=== PATIENT | female | born 1965 | race Hispanic/Latino ===

== ENCOUNTER 2023-02-04 08:32 | Outpatient (CLI) | payer BC | END 2023-02-04 08:33 | disposition home or self-care (01) | LOC: CSHMRI 08:32 | PROVIDERS: ATTEND Family Medicine | DX: M79.622 Pain in left upper arm (principal); S46.812A Strain of other muscles, fascia and tendons at shoulder and upper arm level, left arm, initial encounter; M67.814 Other specified disorders of tendon, left shoulder ==